=== PATIENT | female | born 1980 | race Caucasian/White ===

== ENCOUNTER 2016-09-13 16:45 | Emergency (ER) | payer MEDICAID ==
[2016-09-13 17:05] VITALS: BP 164/87
[2016-09-13] MEDS ORDERED: Ketorolac 60 MG/2 ML SDV IM ONE (17:23)
--- NOTE | 2016-09-13 17:31 | EDM.PDOC ---
ED HPI GENERAL MEDICAL PROBLEM - General Chief Complaint: Back Pain or Injury Stated Complaint: SEVERE LOWE BACK PAIN Time Seen by Provider: 09/13/16 17:20 Source of Information: Reports: Patient, Family History Limitations: Reports: No Limitations - History of Present Illness INITIAL COMMENTS - FREE TEXT/NARRATIVE: 35-year-old female who has an increase in back pain on the left side after being active for the past week. She has a chronic week back and experiences recurring back pain. She was sent to physical therapy and they gave her some exercises but she "lost the paper". She doesn't take pain medication on a regular basis. She has no symptoms radiating down her legs. 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: Musculoskeletal History: Reports: Back Pain, Chronic Psychiatric History: Reports: Anxiety, Depression Hematologic History: Reports: Blood Transfusion(s) - Infectious Disease History Infectious Disease History: Reports: Chicken Pox - Past Surgical History Female Surgical History: Reports: Tubal Ligation Social & Family History - Tobacco Use Smoking Status *Q: Never Smoker Second Hand Smoke Exposure: No - Caffeine Use Caffeine Use: Reports: Soda - Alcohol Use Days Per Week of Alcohol Use: 0 - Recreational Drug Use Recreational Drug Use: No ED ROS GENERAL - Review of Systems Review Of Systems: See Below Constitutional: Denies: Fever, Chills Respiratory: Denies: Shortness of Breath Cardiovascular: Denies: Chest Pain GI/Abdominal: Denies: Abdominal Pain, Nausea, Vomiting : Reports: No Symptoms. Denies: Incontinence Musculoskeletal: Reports: Back Pain Neurological: Denies: Headache ED EXAM,LOWER BACK PAIN/INJURY - Physical Exam Exam: See Below Exam Limited By: No Limitations General Appearance: Alert, No Apparent Distress Respiratory/Chest: No Respiratory Distress Cardiovascular: Regular Rate, Rhythm Back Exam: Muscle Spasm (She has a tender paravertebral muscle in the lower thoracic and lumbar spine on the left side. She has no significant pain with rotation of the back against resistance but does have a pulling sensation with flexion of the left hip.) Course - Vital Signs Last Recorded V/S: Last Vital Signs Temp 98.2 F 09/13/16 17:08 Pulse 91 09/13/16 17:08 Resp 18 09/13/16 17:08 BP 164/87 H 09/13/16 17:08 Pulse Ox 94 L 09/13/16 17:08 - Orders/Labs/Meds Meds: Medications Discontinued Medications Generic Name Dose Route Start Last Admin Trade Name Frelonnie PRN Reason Stop Dose Admin Ketorolac Tromethamine 60 mg 09/13/16 17:23 09/13/16 17:33 Toradol IM 09/13/16 17:24 60 mg ONETIME ONE Administration - Re-Assessments/Exams Free Text/Narrative Re-Assessment/Exam: 09/13/16 17:31 Patient was given a shot of Toradol 60 mg IM. 09/13/16 18:03 Patient did get some relief from the Toradol injection. She was given 20 additional doses to use up to 4 times daily for 15 Flexeril. She was strongly encouraged to increase activity as tolerated and participate in a back strengthening program Departure - Departure Time of Disposition: 18:13 Disposition: Home, Self-Care 01 Condition: good Clinical Impression: Acute thoracic back pain Qualifiers: Back pain laterality: left Qualified Code(s): M54.6 - Pain in thoracic spine - Discharge Information Instructions: Back Pain, Adult Referrals: PCP,None [Primary Care Provider] - Forms: ED Department Discharge Care Plan Goals: Take ketorolac once every 6-8 hours along with Flexeril 3 times daily. Gentle stretching and increasing activity is important. Resume exercises as soon as possible and recheck later this week if not improving satisfactorily.
== END 2016-09-13 18:14 | disposition home or self-care (01) ==
LOC: JP.ED 16:45
DX: M54.6 Pain in thoracic spine (principal); Z98.51 Tubal ligation status
CPT/HCPCS: 96372; 99283; J1885

== ENCOUNTER 2016-09-25 17:29 | Emergency (ER) | payer MEDICAID, OTHER ==
[2016-09-25 18:22] VITALS: BP 144/74
--- NOTE | 2016-09-25 20:01 | EDM.PDOC ---
ED HPI GENERAL MEDICAL PROBLEM - General Chief Complaint: Back Pain or Injury Stated Complaint: HURT BACK WC Time Seen by Provider: 09/25/16 19:29 Source of Information: Reports: Patient History Limitations: Reports: No Limitations - History of Present Illness INITIAL COMMENTS - FREE TEXT/NARRATIVE: History of present illness: [36-year-old female presents with an acute onset of back pain underneath her left scapula. This came on when she grabbed some cheese and was pulling it on the floor at her work. Her employer suggested she get it checked out after she started having pain. She has tomorrow off. She has chronic low back pain and currently is on a muscle relaxant and dexamethasone and will be following up for that. She has well localized sharp pain that is nonradiating and it hurts when she twists her trunk. She's taken nothing for pain] Review of systems: As per history of present illness and below otherwise all systems reviewed and negative. Past medical history: As per history of present illness and as reviewed below otherwise noncontributory. Surgical history: As per history of present illness and as reviewed below otherwise noncontributory. Social history: No reported history of drug or alcohol abuse. Family history: As per history of present illness and as reviewed below otherwise noncontributory. Physical exam: HEENT: Atraumatic, normocephalic, pupils reactive, negative for conjunctival pallor or scleral icterus, mucous membranes moist, throat clear, neck supple, nontender, trachea midline. Lungs: Clear to auscultation, breath sounds equal bilaterally, chest nontender. Heart: S1S2, regular, Abdomen: Soft, nondistended, nontender. Extremities: Atraumatic, negative for cords or calf pain. Neurovascular unremarkable. Neuro: Awake, alert, oriented. Exam nonfocal. back: She has well localized pain just underneath her left scapula in the parathoracic spine area. Palpating and massaging this muscle exacerbates her pain. Diagnostics: [] Therapeutics: [] Impression: [acute thoracic back pain musculoskeletal in nature] Plan: [conservative management is recommended with massage heat ice NSAIDs and rest. She has tomorrow off so that should help and hopefully she can return to work the following day.] Definitive disposition and diagnosis as appropriate pending reevaluation and review of above. 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: Musculoskeletal History: Reports: Back Pain, Chronic Psychiatric History: Reports: Anxiety, Depression Hematologic History: Reports: Blood Transfusion(s) - Infectious Disease History Infectious Disease History: Reports: Chicken Pox - Past Surgical History Female Surgical History: Reports: Tubal Ligation Social & Family History - Tobacco Use Smoking Status *Q: Never Smoker Second Hand Smoke Exposure: No - Caffeine Use Caffeine Use: Reports: Coffee, Energy Drinks, Soda, Tea - Alcohol Use Days Per Week of Alcohol Use: 0 - Recreational Drug Use Recreational Drug Use: No ED ROS GENERAL - Review of Systems Review Of Systems: ROS reveals no pertinent complaints other than HPI. ED EXAM, UPPER BACK/NECK PAIN - Physical Exam Exam: See Below Course - Vital Signs Last Recorded V/S: Last Vital Signs Temp 36.7 C 09/25/16 19:16 Pulse 95 09/25/16 19:16 Resp 16 09/25/16 19:16 BP 144/74 H 09/25/16 19:16 Pulse Ox 94 L 09/25/16 19:16 Departure - Departure Time of Disposition: 20:00 Disposition: Home, Self-Care 01 Condition: good Clinical Impression: Acute thoracic back pain Qualifiers: Back pain laterality: left Qualified Code(s): M54.6 - Pain in thoracic spine - Discharge Information Forms: ED Department Discharge Additional Instructions: as we discussed you can use [id number] Advil or Naprosyn ice and heat massage and rest and hopefully he'll feel better in a couple of days. If your pain persists he can followup with your primary care DrBony and they may recommend physical therapy.
== END 2016-09-25 20:17 | disposition home or self-care (01) ==
LOC: JP.ED 17:29
DX: M54.6 Pain in thoracic spine (principal); H54.7 Unspecified visual loss; F41.9 Anxiety disorder, unspecified; F32.9 Major depressive disorder, single episode, unspecified; Z98.51 Tubal ligation status
CPT/HCPCS: 99282; 99283

== ENCOUNTER 2016-12-15 21:58 | Emergency (ER) | payer MEDICAID ==
[2016-12-15 22:30] VITALS: BP 133/83
--- NOTE | 2016-12-15 23:02 | EDM.PDOC ---
ED HPI GENERAL MEDICAL PROBLEM - General Chief Complaint: Lower Extremity Injury/Pain Stated Complaint: ANKLE Time Seen by Provider: 12/15/16 22:50 Source of Information: Reports: Patient, RN Notes Reviewed History Limitations: Reports: No Limitations - History of Present Illness INITIAL COMMENTS - FREE TEXT/NARRATIVE: 36-year-old female presents emergency department day complaint of chronic left ankle pain, she states had this for a couple years she has had x-rays done and ultrasound done as well no cause has been found yet, she was sent here by her employer as she was experiencing severe pain at work, she stands for long periods of time on a concrete floor Left Ankle Pain Score (Numeric/FACES): 1 - Related Data Allergies Allergy/AdvReac Type Severity Reaction Status Date / Time No Known Allergies Allergy Verified 09/25/16 19:18 Home Meds: Home Meds Dexamethasone 4 mg PO TID 09/25/16 [History] Methocarbamol [Robaxin] 500 mg PO QID PRN 09/25/16 [History] Past Medical History 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: Reports: 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: Musculoskeletal History: Reports: Back Pain, Chronic Other Musculoskeletal History: CHRONIC L ANKLE AND FOOT PAIN Psychiatric History: Reports: Anxiety, Depression Hematologic History: Reports: Blood Transfusion(s) - Infectious Disease History Infectious Disease History: Reports: Chicken Pox - Past Surgical History Female Surgical History: Reports: Tubal Ligation Social & Family History - Tobacco Use Smoking Status *Q: Unknown Ever Smoked Second Hand Smoke Exposure: No - Caffeine Use Caffeine Use: Reports: Coffee, Energy Drinks, Soda, Tea - Alcohol Use Days Per Week of Alcohol Use: 0 - Recreational Drug Use Recreational Drug Use: No Review of Systems - Review of Systems Review Of Systems: See Below Musculoskeletal: Reports: Joint Pain (Left ankle pain) ED EXAM, GENERAL - Physical Exam Exam: See Below Free Text/Narrative:: Examination of left ankle I don't appreciate any erythema there is no bruising, pedal pulses 2+ full range of motion ankle anterior drawer test and tilt test are both negative Exam Limited By: No Limitations General Appearance: Alert, WD/WN, No Apparent Distress Course - Vital Signs Last Recorded V/S: Last Vital Signs Temp 98.2 F 12/15/16 22:27 Pulse 71 12/15/16 22:27 Resp 15 12/15/16 22:27 BP 133/83 12/15/16 22:27 Pulse Ox 97 12/15/16 22:27 Departure - Departure Time of Disposition: 23:02 Disposition: Home, Self-Care 01 Condition: Good Clinical Impression: Chronic pain of left ankle - Discharge Information Referrals: PCP,None [Primary Care Provider] - Additional Instructions: Please followup with your primary care provider in 2-3 days if not better, please call return to the emergency department with worsening of symptoms. - Assessment/Plan Plan: Assessment Acuity = acute Site and laterality = chronic left ankle pain Etiology = unknown Manifestations = none Location of injury = Home Lab values = none Plan Work note provided for 2 days rest with ice and elevation recommend she follow- up with her primary care in 2-3 days for further evaluation Patient was in agreement with the plan all questions were answered, they were instructed to return to the emergency department or call for worsening symptoms. This note was dictated using [email or web address] voice recognition software please call with any questions.
== END 2016-12-15 23:14 | disposition home or self-care (01) ==
LOC: JP.ED 21:58
DX: M25.572 Pain in left ankle and joints of left foot (principal); G89.29 Other chronic pain; F41.9 Anxiety disorder, unspecified; F32.9 Major depressive disorder, single episode, unspecified; Z98.51 Tubal ligation status; X58.XXXA Exposure to other specified factors, initial encounter
CPT/HCPCS: 99283

== ENCOUNTER 2017-07-02 11:20 | Emergency (ER) | payer MEDICAID, OTHER ==
[2017-07-02 11:53] VITALS: BP 127/74
--- NOTE | 2017-07-02 12:23 | EDM.PDOC ---
ED HPI GENERAL MEDICAL PROBLEM - General Chief Complaint: Upper Extremity Injury/Pain Stated Complaint: R SHOULDER PAIN Time Seen by Provider: 07/02/17 12:00 Source of Information: Reports: Patient History Limitations: Reports: No Limitations - History of Present Illness INITIAL COMMENTS - FREE TEXT/NARRATIVE: 36-year-old female was having some right shoulder soreness over the past 4-6 days, cough this morning and it got a little worse so she wanted to come in to make sure she didn't do anything serious. It is located mostly on the inner aspect of the right shoulder blade. She looks completely comfortable. 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: Musculoskeletal History: Reports: Back Pain, Chronic Other Musculoskeletal History: CHRONIC L ANKLE AND FOOT PAIN Psychiatric History: Reports: Anxiety, Depression Hematologic History: Reports: Blood Transfusion(s) - Infectious Disease History Infectious Disease History: Reports: Chicken Pox - Past Surgical History Female Surgical History: Reports: Tubal Ligation Social & Family History - Tobacco Use Smoking Status *Q: Never Smoker Second Hand Smoke Exposure: No - Caffeine Use Caffeine Use: Reports: Coffee, Energy Drinks, Soda, Tea - Alcohol Use Days Per Week of Alcohol Use: 0 - Recreational Drug Use Recreational Drug Use: No Review of Systems - Review of Systems Review Of Systems: See Below Constitutional: Denies: Fever Respiratory: Reports: Cough (Mild dry cough over the past several days no shortness of breath). Denies: Shortness of Breath Skin: Reports: No Symptoms Neurological: Reports: No Symptoms ED EXAM, GENERAL - Physical Exam Exam: See Below Exam Limited By: No Limitations General Appearance: Alert, No Apparent Distress Head: Atraumatic Neck: Supple Respiratory/Chest: No Respiratory Distress Extremities: Other (Patient has some moderate palpation tenderness to the rhomboids of the right shoulder, however has full range of motiona actively of the shoulder with minimal hesitation. Strength of abduction and abduction against resistance is strong) Course - Vital Signs Last Recorded V/S: Last Vital Signs Temp 97.0 F 07/02/17 11:51 Pulse 70 07/02/17 11:51 Resp 14 07/02/17 11:51 BP 127/74 07/02/17 11:51 Pulse Ox 98 07/02/17 11:51 - Re-Assessments/Exams Free Text/Narrative Re-Assessment/Exam: 07/02/17 12:22 Patient has an isolated rhomboid strain on the right side which should improve with time and increased activity. She was given 500 mg naproxen to take twice daily and encouraged to recheck at the clinic in 5-6 days if not improving satisfactorily. Departure - Departure Time of Disposition: 13:32 Disposition: Home, Self-Care 01 Condition: Good Clinical Impression: Strain of rhomboid muscle Qualifiers: Encounter type: initial encounter Qualified Code(s): S29.012A - Strain of muscle and tendon of back wall of thorax, initial encounter - Discharge Information Instructions: Shoulder Pain, [id number] Referrals: PCP,None [Primary Care Provider] - Forms: ED Department Discharge Care Plan Goals: Take naproxen twice daily, increase activity as tolerated and recheck in 4-6 days if not improving satisfactorily.
== END 2017-07-02 12:33 | disposition home or self-care (01) ==
LOC: JP.ED 11:20
DX: S29.012A Strain of muscle and tendon of back wall of thorax, initial encounter (principal); X58.XXXA Exposure to other specified factors, initial encounter
CPT/HCPCS: 99283

== ENCOUNTER 2017-08-11 14:36 | Emergency (ER) | payer MEDICAID, OTHER ==
[2017-08-11 16:21] VITALS: BP 145/84
[2017-08-11] MEDS ORDERED: Cyclobenzaprine 10 MG Tab PO ONE (16:33)
[2017-08-11] MEDS ORDERED: Ketorolac 60 MG/2 ML SDV IM ONE (16:33)
--- NOTE | 2017-08-11 16:37 | EDM.PDOC ---
ED HPI GENERAL MEDICAL PROBLEM - General Chief Complaint: Lower Extremity Injury/Pain Stated Complaint: HIP PAIN, PULLED MUSCLES Time Seen by Provider: 08/11/17 16:30 Source of Information: Reports: Patient, RN Notes Reviewed History Limitations: Reports: No Limitations - History of Present Illness INITIAL COMMENTS - FREE TEXT/NARRATIVE: 36-year-old female presents emergency department day complaint of right hip pain and right shoulder pain she denies any trauma states she awoke with this she feels she must of done something her sleep, has tried Motrin with minimal effect Right Hip Pain Score (Numeric/FACES): 4 - Related Data Allergies Allergy/AdvReac Type Severity Reaction Status Date / Time No Known Allergies Allergy Verified 08/11/17 16:15 Home Meds: Home Meds Ibuprofen 1 tab PO Q6H PRN 08/11/17 [History] Past Medical History 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: Reports: Impaired 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: Musculoskeletal History: Reports: Back Pain, Chronic Other Musculoskeletal History: CHRONIC L ANKLE AND FOOT PAIN Psychiatric History: Reports: Anxiety, Depression Hematologic History: Reports: Blood Transfusion(s) - Infectious Disease History Infectious Disease History: Reports: Chicken Pox - Past Surgical History Female Surgical History: Reports: Tubal Ligation Social & Family History - Tobacco Use Smoking Status *Q: Current Some Day Smoker Years of Tobacco use: 1 Packs/Tins Daily: 0.2 Used Tobacco, but Quit: No Second Hand Smoke Exposure: Yes - Caffeine Use Caffeine Use: Reports: Coffee, Energy Drinks, Tea - Alcohol Use Days Per Week of Alcohol Use: 2 Number of Drinks Per Day: 3 Total Drinks Per Week: 6 - Recreational Drug Use Recreational Drug Use: No Review of Systems - Review of Systems Review Of Systems: See Below Musculoskeletal: Reports: Shoulder Pain, Joint Pain ED EXAM, GENERAL - Physical Exam Exam: See Below Free Text/Narrative:: Examination of the right hip I don't appreciate any point tenderness there is no tenderness with internal/external rotation no tenderness with flexion or extension of the hip examination the shoulder she has full range of motion the shoulder however she is point tender along the rhomboids Exam Limited By: No Limitations General Appearance: Alert, WD/WN, No Apparent Distress Respiratory/Chest: No Respiratory Distress Course - Vital Signs Last Recorded V/S: Last Vital Signs Temp 97.8 F 08/11/17 16:20 Pulse 83 08/11/17 16:20 Resp 16 04/27/18 16:20 BP 145/84 H 08/11/17 16:20 Pulse Ox 97 08/11/17 16:20 - Orders/Labs/Meds Meds: Medications Discontinued Medications Generic Name Dose Route Start Last Admin Trade Name Johnnie PRN Reason Stop Dose Admin Cyclobenzaprine HCl 10 mg 08/11/17 16:33 08/11/17 16:51 Flexeril PO 08/11/17 16:34 10 mg ONETIME ONE Administration Ketorolac Tromethamine 60 mg 08/11/17 16:33 08/11/17 16:52 Toradol IM 08/11/17 16:34 60 mg ONETIME ONE Administration Departure - Departure Time of Disposition: 17:01 Disposition: Home, Self-Care 01 Condition: Good Clinical Impression: Muscle strain - Discharge Information Referrals: PCP,None [Primary Care Provider] - Forms: ED Department Discharge, ED Return to Work/School Form Additional Instructions: Continue to use ibuprofen or Tylenol as needed for pain control, use the Flexeril as needed for muscle relaxant, Please followup with your primary care provider in 3-5 days if not better, please call return to the emergency department with worsening of symptoms. - Assessment/Plan Plan: Assessment Acuity = acute Site and laterality = muscle strain Etiology = probably related to sleep position Manifestations = none Location of injury = Home Lab values = none Plan She had good improvement with Toradol and Flexeril plan is to discharge home with Flexeril 10 mg by mouth 3 times a day when necessary total #15 her follow- up with your primary care in the next 3-5 days if no improvement This note was dictated using [employer] voice recognition software please call with any questions on syntax or loree.
== END 2017-08-11 17:15 | disposition home or self-care (01) ==
LOC: JP.ED 14:36
DX: S46.911A Strain of unspecified muscle, fascia and tendon at shoulder and upper arm level, right arm, initial encounter (principal); S76.011A Strain of muscle, fascia and tendon of right hip, initial encounter; F17.210 Nicotine dependence, cigarettes, uncomplicated; X58.XXXA Exposure to other specified factors, initial encounter
CPT/HCPCS: 96372; 99283; A9270; J1885

== ENCOUNTER 2017-08-30 19:32 | Emergency (ER) | payer MEDICAID ==
[2017-08-30 19:54] VITALS: BP 126/80
--- NOTE | 2017-08-30 21:10 | EDM.PDOC ---
ED HPI GENERAL MEDICAL PROBLEM - General Chief Complaint: General Stated Complaint: PULLED MUSCLE/RIB ON LT SIDE Time Seen by Provider: 08/30/17 20:30 Source of Information: Reports: Patient History Limitations: Reports: No Limitations - History of Present Illness INITIAL COMMENTS - FREE TEXT/NARRATIVE: 36-year-old female with left-sided chest wall pain after coughing real hard 2 weeks ago, now she is moving furniture and packing boxes and overdid it and has a pain in her left lateral chest that she wants checked out. No rash or bruising , no sudden trauma. Denies shortness of breath. 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: Musculoskeletal History: Reports: Back Pain, Chronic Other Musculoskeletal History: CHRONIC L ANKLE AND FOOT PAIN Psychiatric History: Reports: Anxiety, Depression, Psych Hospitalization(s), Suicide Attempt Endocrine/Metabolic History: Reports: Obesity/BMI 30+ Hematologic History: Reports: Blood Transfusion(s) - Infectious Disease History Infectious Disease History: Reports: Chicken Pox - Past Surgical History GI Surgical History: Reports: Appendectomy Female Surgical History: Reports: Tubal Ligation Social & Family History - Tobacco Use Smoking Status *Q: Current Some Day Smoker Years of Tobacco use: 17 Packs/Tins Daily: 0.1 - Caffeine Use Caffeine Use: Reports: Energy Drinks, Tea - Alcohol Use Days Per Week of Alcohol Use: 2 Number of Drinks Per Day: 8 Total Drinks Per Week: 16 - Recreational Drug Use Recreational Drug Use: Yes Drug Use in Last 12 Months: No Recreational Drug Type: Reports: Marijuana/Hashish ED ROS GENERAL - Review of Systems Review Of Systems: See Below Constitutional: Denies: Fever, Chills Respiratory: Reports: Pleuritic Chest Pain. Denies: Shortness of Breath Cardiovascular: Reports: Chest Pain GI/Abdominal: Denies: Abdominal Pain, Nausea, Vomiting Skin: Denies: Bruising, Rash Neurological: Reports: No Symptoms ED EXAM, GENERAL - Physical Exam Exam: See Below Exam Limited By: No Limitations General Appearance: Alert, No Apparent Distress Head: Atraumatic Respiratory/Chest: No Respiratory Distress, Lungs Clear, Other (Chest is tender over the left lateral chest, no crepitus or bruising is seen) Cardiovascular: Regular Rate, Rhythm Neurological: Alert, Oriented Psychiatric: Normal Affect, Normal Mood Skin Exam: Warm, Dry Course - Vital Signs Last Recorded V/S: Last Vital Signs Temp 99.3 F 08/30/17 20:00 Pulse 92 08/30/17 20:00 Resp 18 08/30/17 20:00 BP 126/80 08/30/17 20:00 Pulse Ox 99 08/30/17 20:00 - Orders/Labs/Meds Orders: Active Orders 24 hr Category Date Time Status Ribs 2V w Chest Lt [CR] Stat Exams 08/30/17 20:37 Taken - Re-Assessments/Exams Free Text/Narrative Re-Assessment/Exam: 08/30/17 21:09 A chest x-ray with rib detail was done which was completely normal. Patient was given 10 doses of Toradol to take 3 times a day over the next 3-1/2 days, increase activity as tolerated and recheck next week if not improving satisfactorily. Departure - Departure Time of Disposition: 21:15 Disposition: Home, Self-Care 01 Condition: Good Clinical Impression: Strain of chest wall Qualifiers: Encounter type: initial encounter Qualified Code(s): S29.011A - Strain of muscle and tendon of front wall of thorax, initial encounter - Discharge Information Instructions: Muscle Strain, [id number] Referrals: PCP,None [Primary Care Provider] - Forms: ED Department Discharge Care Plan Goals: Use ketorolac one every 6-8 hours until gone. Increase activity as tolerated and recheck in 5-6 days if not improving satisfactorily. - My Orders Last 24 Hours: My Active Orders 08/30/17 20:37 Ribs 2V w Chest Lt [CR] Stat - Assessment/Plan Last 24 Hours: My Active Orders 08/30/17 20:37 Ribs 2V w Chest Lt [CR] Stat
--- NOTE | 2017-08-31 09:02 | CR ---
Chest with left RIBS The heart and vascular structures are within normal limits. There are no infiltrates. There is no pne umothorax. Views of the left ribs demonstrate normal alignment. No fractures are demonstrated. Impression: 1. No acute findings.
== END 2017-08-30 21:15 | disposition home or self-care (01) ==
LOC: JP.ED 19:32
DX: S29.011A Strain of muscle and tendon of front wall of thorax, initial encounter (principal); F17.210 Nicotine dependence, cigarettes, uncomplicated; F41.9 Anxiety disorder, unspecified; F32.9 Major depressive disorder, single episode, unspecified; X58.XXXA Exposure to other specified factors, initial encounter
CPT/HCPCS: 71101-26-LT; 71101-LT; 99284